=== PATIENT | female | born 1970 | race Caucasian/White ===

== ENCOUNTER 2020-08-10 11:45 | Day surgery (SDC) | payer BC ==
[2020-08-05 16:00] VITALS: BMI 32.8
[~2020-08-10 11:45] MED LIST: BUPIVACAINE HCL/PF 0.25% (2.5MG/ML) 10 ML VIAL IJ ONE
[2020-08-10] MEDS ORDERED: SCOPOLAMINE HYDROBROMIDE 1 PATCH PATCH.TD72 ONE (13:16)
[2020-08-10] MEDS ORDERED: BUPIVACAINE HCL/PF 0.25% (2.5MG/ML) 10 ML VIAL ONE (13:36)
[2020-08-10] MEDS ORDERED: MIDAZOLAM HCL 2 MG/2 ML SINGLE DOSE VIAL ONE (13:42)
[2020-08-10] MEDS ORDERED: PROPOFOL 20 ML ONE (13:42)
[2020-08-10] MEDS ORDERED: BUPIVACAINE HCL/PF 0.25% (2.5MG/ML) 10 ML VIAL IJ ONE (14:10)
[2020-08-10] MEDS ORDERED: ONDANSETRON 4 MG/2 ML VIAL IVPUSH PRN (14:23)
[2020-08-10] MEDS ORDERED: oxyCODONE HCL 5 MG TABLET PO PRN (14:23)
[2020-08-10] MEDS ORDERED: PROMETHAZINE HCL 25 MG/1 ML VIAL IVPUSH PRN (14:23)
[2020-08-10 15:24] VITALS: BP 115/81; PULSE 67; TEMP 98.4
== END 2020-08-10 15:40 | disposition home or self-care (01) ==
LOC: FASU 11:45
PROVIDERS: ATTEND Orthopaedic Surgery Hand Surgery
PROC: 01N54ZZ Release Median Nerve, Percutaneous Endoscopic Approach (ICD-10-PCS; principal; 2020-08-10 14:03)
DX: G56.01 Carpal tunnel syndrome, right upper limb (principal)
CPT/HCPCS: 94760